=== PATIENT | male | born 1960 | race Caucasian/White ===

== ENCOUNTER 2019-09-17 18:40 | Emergency (ER) | payer OTHER ==
[~2019-09-17] VITALS: Ht 180.3 cm; Wt 84.0 kg
[2019-09-17 19:00] VITALS: BP 124/70
--- NOTE | 2019-09-17 19:10 | PHYS DOC ---
General Adult EDM: Chief Complaint: LACERATION/AVULSION HPI: HPI: 59-year-old male presents with laceration/avulsion of the left index finger. The patient was using a knife cutting up some chicken when it slipped and shaved a piece of skin off of his left index finger. He was unable to get it to completely stop bleeding. He was not sure if it could be stitch so he came to the emergency room. He denies any other injuries. Review of Systems: Review of Systems: Constitutional: Denies fever or chills Eyes: Denies change in visual acuity HENT: Denies nasal congestion or sore throat Respiratory: Denies cough or shortness of breath Cardiovascular: Denies chest pain or edema GI: Denies abdominal pain, nausea, vomiting, bloody stools or diarrhea : Denies dysuria Musculoskeletal: Denies back pain or joint pain Integument: Avulsion of skin of the left index finger Neurologic: Denies headache, focal weakness or sensory changes Endocrine: Denies polyuria or polydipsia Lymphatic: Denies swollen glands Psychiatric: Denies depression or anxiety Heart Score: Risk Factors: Risk Factors: DM, Current or recent (<one month) smoker, HTN, HLP, family history of CAD, obesity. Risk Scores: Score 0 - 3: 2.5% MACE over next 6 weeks - Discharge Home Score 4 - 6: 20.3% MACE over next 6 weeks - Admit for Clinical Observation Score 7 - 10: 72.7% MACE over next 6 weeks - Early Invasive Strategies Physical Exam: PE: Constitutional: Well developed, well nourished, no acute distress, non-toxic appearance. [] HENT: Normocephalic, atraumatic, bilateral external ears normal, oropharynx moist, no oral exudates, nose normal. [] Eyes: PERRLA, EOMI, conjunctiva normal, no discharge. [] Neck: Normal range of motion, no tenderness, supple, no stridor. [] Cardiovascular:Heart rate regular rhythm, no murmur [] Lungs & Thorax: Bilateral breath sounds clear to auscultation [] Abdomen: Bowel sounds normal, soft, no tenderness, no masses, no pulsatile masses. [] Skin: 7 mm x 1 cm avulsion of skin left index finger, minor bleeding. No flap left for repair. [] Back: No tenderness, no CVA tenderness. [] Extremities: No tenderness, no cyanosis, no clubbing, ROM intact, no edema. [] Neurologic: Alert and oriented X 3, normal motor function, normal sensory function, no focal deficits noted. [] Psychologic: Affect normal, judgement normal, mood normal. [] EKG: EKG: [] Radiology/Procedures: Radiology/Procedures: [] Course & Med Decision Making: Course & Med Decision Making Pertinent Labs and Imaging studies reviewed. (See chart for details) The patient completely cut off a section of skin. It is not amenable to surgical repair. We will place a nonadherent dressing over it with a pressure bandage. I have advised the patient leave this on for least 24 hours. He will then change his bandages daily. He understands it will take time for this to completely heal. He is stable for discharge at this time. [] Dragon Disclaimer: Dragon Disclaimer: This electronic medical record was generated, in whole or in part, using a voice recognition dictation system. Departure Departure: Impression: Primary Impression: Avulsion of skin of left hand Qualified Codes: S61.402A - Unspecified open wound of left hand, initial encounter Disposition: HOME, SELF-CARE Condition: STABLE Referrals: KEIRA TONG MD (PCP) Patient Instructions: Deep Skin Avulsion AMADOU PETERSEN DO Sep 17, 2019 19:10
[2019-09-17] MEDS ORDERED: GELATIN SPONGE SIZE 12-7MM SPONGE. ONE (19:18)
[2019-09-17] MEDS ORDERED: DIPH,PERTUSS(ACELL),TET VAC/PF 0.5 ML SYRINGE. VAX IM ONE ×2 (19:18→20:00)
[2019-09-17] MEDS ORDERED: GELATIN SPONGE SIZE 12-7MM SPONGE. TP ONE (19:30)
== END 2019-09-17 19:45 | disposition home or self-care (01) ==
LOC: ER 18:40
DX: S61.201A Unspecified open wound of left index finger without damage to nail, initial encounter (principal); W26.0XXA Contact with knife, initial encounter; Y93.89 Activity, other specified; Y92.89 Other specified places as the place of occurrence of the external cause; Y99.8 Other external cause status
CPT/HCPCS: 90471; 90715; 99283-25